=== PATIENT | male | born 1965 | race Caucasian/White ===

== ENCOUNTER 2019-11-10 08:51 | Day surgery (SDC) | payer BC ==
[2019-11-08 16:21] VITALS: BMI 36.8
[~2019-11-10 08:51] MED LIST: LACTATED RINGERS 1,000 ML IV SCH
[2019-11-10 09:33] VITALS: TEMP 98
[2019-11-10] MEDS ORDERED: LIDOCAINE 1% 20 ML VIAL (10MG/ML) FOR IV START INTRADERMA ONE (09:34)
[2019-11-10] MEDS ORDERED: ePHEDrine SULFATE/0.9% NACL/PF 50 MG/5 ML SYRINGE IV ONE (10:11)
[2019-11-10] MEDS ORDERED: LIDOCAINE 1% INJ 10MG/ML (20 ML MDV) ONE (10:11)
[2019-11-10] MEDS ORDERED: PROPOFOL 10 MG/ML 20 ML VIAL IV ONE (10:11)
--- NOTE | 2019-11-10 10:31 | P.PCN ---
Date of Procedure: 11/10/19 Procedure(s) Performed: BRIEF HISTORY: Patient is a 53-year-old pleasant male scheduled for an elective colonoscopy as a part of screening for colorectal neoplasia. His mother was diagnosed with colon cancer at age 70. PROCEDURE PERFORMED: Colonoscopy. PREOPERATIVE DIAGNOSIS: Screening for colon cancer/family history of colon cancer. IV sedation per Anesthesia. PROCEDURE: After informed consent was obtained, the patient, was brought into the endoscopy unit. IV sedation was administered by Anesthesia under continuous monitoring. Digital rectal examination was normal. Initially the Olympus CF-160 flexible video colonoscope was then inserted in the rectum, gradually advanced into the cecum without any difficulty. Careful examination was performed as the scope was gradually being withdrawn. Ileocecal valve and the appendiceal orifice were visualized and appeared normal. Prep was excellent. Mucosa of the cecum, ascending colon, transverse colon, descending colon, sigmoid colon, and rectum appeared normal. Scattered sigmoid diverticulosis seen. Retroflexion was performed in the rectum and no lesions were seen. The patient tolerated the procedure well. IMPRESSION: Normal-appearing colon from rectum to cecum with no evidence of colorectal neoplasia. RECOMMENDATIONS: Findings of this examination were discussed with the patient as well as his family. He was advised to have a repeat screening colonoscopy every 5 years because of the family history of colon cancer.
[2019-11-10 11:02] VITALS: RESP 16
[2019-11-10 11:03] VITALS: BP 102/66; PULSE 74
== END 2019-11-10 11:05 | disposition home or self-care (01) ==
LOC: ORWHC2ENDO 08:51
PROVIDERS: ATTEND Internal Medicine Gastroenterology
DX: Z12.11 Encounter for screening for malignant neoplasm of colon (principal); K57.30 Diverticulosis of large intestine without perforation or abscess without bleeding; Z80.0 Family history of malignant neoplasm of digestive organs; I10 Essential (primary) hypertension; H40.9 Unspecified glaucoma; E66.01 Morbid (severe) obesity due to excess calories; Z68.37 Body mass index [BMI] 37.0-37.9, adult; Z79.899 Other long term (current) drug therapy
CPT/HCPCS: J2001; J2704; G0105

== ENCOUNTER → 2022-03-16 | Outpatient (CLI) | payer BC ==
--- NOTE | 2022-03-17 06:04 | MR ---
EXAMINATION TYPE: MR knee LT wo con DATE OF EXAM: 03/16/2022 COMPARISON: None HISTORY: Left inner knee pain for 2 months due to fall on knee Multiplanar multiecho imaging of the left knee with no contrast. The anterior and posterior cruciate ligaments are intact. There is extensive soft tissue edema on the medial aspect of the knee and evidence of partial tear of the medial collateral ligament. The latera l collateral ligament appears intact. There is thinning of the posterior horn of the medial meniscus. There is narrowing of the medial joint space. There is a complex vertical tear through the posterior horn medial meniscus. The lateral meniscus appears fairly normal. There is no evidence of a fracture . There is a 1 cm area of increased signal in the subchondral posterior medial femoral condyle consis tent with a bone bruise. No evidence of any significant joint effusion. There is subcutaneous edema a nterior to the patella. IMPRESSION: There is evidence of a tear of the medial collateral ligament. There is complex tear of the posterior horn medial meniscus. There is osteoarthritis in the medial joint space. No fracture seen.
== END | disposition home or self-care (01) ==
LOC: RADMRIMAIN 18:30
PROVIDERS: ATTEND Nurse Practitioner Family
DX: S83.412A Sprain of medial collateral ligament of left knee, initial encounter (principal); M17.12 Unilateral primary osteoarthritis, left knee; S83.232A Complex tear of medial meniscus, current injury, left knee, initial encounter; W19.XXXA Unspecified fall, initial encounter